=== PATIENT | male | born 1945 | race Caucasian/White ===

== ENCOUNTER 2016-11-21 06:54 | Day surgery (SDC) | payer MEDICARE ==
[2016-11-19 12:27] VITALS: BMI 30.7
[~2016-11-21 06:54] MED LIST: LACTATED RINGERS 1,000 ML IV SCH; MOXIFLOXACIN HCL 0.5% DROPS 3 ML BTL OP ONE; TETRACAINE 0.5% OPHTH (PF) DROPS 4 ML BTL OP ONE; TIMOLOL 0.5% OPHTH SOLN (PF) 0.2 ML DROPERETTE OP ONE
[2016-11-21] MEDS: CYCLOPENTOLATE 1% OPHTH SOLN 2 ML BTL OP ONE ×3 (07:09→07:27)
[2016-11-21 07:13] VITALS: TEMP 97.7
[2016-11-21] MEDS: PHENYLEPHRINE 2.5% OPHTH DRP 2ML OP NR ×3 (07:13→07:30)
[2016-11-21] MEDS ORDERED: LIDOCAINE 1% 20 ML VIAL (10MG/ML) FOR IV START INTRADERMA ONE (07:24)
[2016-11-21] MEDS ORDERED: fentaNYL (PF) 50 MCG/ML 2 ML AMP ONE (08:12)
[2016-11-21] MEDS ORDERED: MIDAZOLAM 2 MG/2 ML VIAL ONE (08:12)
[2016-11-21] MEDS ORDERED: BALANCED SALT IRRIG SOLN COMB2 15 ML IRRIG.SOLN INTRAOCULA ONE (08:18)
[2016-11-21] MEDS ORDERED: HYALURONATE SODIUM INTRAOCULAR 1 EACH SYRINGE (12MG/ML) INTRAOCULA ONE (08:18)
[2016-11-21] MEDS ORDERED: LIDOCAINE 1% (PF) 10MG/ML VIAL SQ ONE (08:18)
[2016-11-21] MEDS ORDERED: EPINEPHrine (PF) 0.3 ML in BALANCED SALT IRRIG SOLN COMB2 500 ML IRRIGATION ONE (08:21)
--- NOTE | 2016-11-21 08:44 | P.OP ---
Date of Procedure: 11/21/16 Preoperative Diagnosis: NS & CS OS Postoperative Diagnosis: same Procedure(s) Performed: PIOL, OS Implants: PCB0 23.00 Anesthesia: MAC Surgeon: Luis Clayton Estimated Blood Loss (ml): 0 Pathology: none sent Condition: stable Disposition: same day Indications for Procedure: blurry vision Operative Findings: No complications
[2016-11-21 08:47] VITALS: RESP 16
[2016-11-21 09:16] VITALS: BP 159/87; PULSE 79
--- NOTE | 2016-11-21 18:55 | OP ---
DATE OF SERVICE: 11/21/2016 SURGEON: ANNALISE MILES MD KILN FIRER: PREOPERATIVE DIAGNOSES: 1. Nuclear sclerosis. 2. Cortical sclerosis. 3. Posterior subcapsular cataract. POSTOPERATIVE DIAGNOSES: 1. Nuclear sclerosis. 2. Cortical sclerosis. 3. Posterior subcapsular cataract. OPERATION: Phacoemulsification of cataract and intraocular lens implant of the left eye. ESTIMATED BLOOD LOSS: Zero. SPECIMEN TAKEN: None. NARRATIVE: After obtaining the appropriate consent, the patient was brought to the Operating Room where the patient was placed under cardiac monitoring and prepped and draped in the usual sterile manner. At the 5 o'clock position a 15 degree super sharp blade was used to create a paracentesis followed by instillation of 1% Xylocaine MPF 50:50 mix with BSS into the anterior chamber. This was followed by Amvisc to stabilize the anterior chamber. At the 3 o'clock position a self-sealing corneal flap incision was created using 2.8 mm magnolia keratome. A cystotome was used to initiate a continuous tear capsulorrhexis which was completed with the Utrata forceps. A Binkhorst cannula was used to hydrodissect the lens nucleus followed by hydrodelineation. Phacoemulsification of the lens was performed utilizing phacochop in 009.5 seconds at 9% power. The remaining cortical material was removed using the irrigation aspiration mode followed by additional 1% Xylocaine MPF into the anterior chamber followed by viscoelastic to stabilize the capsular bag. An JAYNA PCB 00 23.0 diopter posterior chamber lens was placed into the capsular bag without difficulty. The remaining viscoelastic material was removed from the anterior chamber with the irrigation/aspiration. Balanced salt solution was used to normalize the intraocular pressure. The incision was checked for watertight integrity. The patient then received 2 drops of 0.5% timolol followed by 2 drops Vigamox, was lightly patched and shielded in the usual manner. There were no complications from the procedure. The patient tolerated the procedure well and was returned to recovery in good condition.
== END 2016-11-21 09:30 | disposition home or self-care (01) ==
LOC: OR 06:54
PROVIDERS: ATTEND Ophthalmology
DX: H25.12 Age-related nuclear cataract, left eye (principal); H25.042 Posterior subcapsular polar age-related cataract, left eye; H40.31 Glaucoma secondary to eye trauma, right eye; H35.371 Puckering of macula, right eye; H52.13 Myopia, bilateral; H21.561 Pupillary abnormality, right eye; Z96.1 Presence of intraocular lens; Z79.82 Long term (current) use of aspirin; F17.200 Nicotine dependence, unspecified, uncomplicated; Z79.899 Other long term (current) drug therapy
CPT/HCPCS: 66984; C1780; J2250; J0171; J3010; J2001

== ENCOUNTER → 2016-12-27 | Outpatient (CLI) | payer MEDICARE ==
--- NOTE | 2016-12-27 09:18 | ECHOF ---
Referral Reason:R01.0 benign and innocent cardiac murmurs MEASUREMENTS -------- HEIGHT: 182.9 cm WEIGHT: 99.8 kg BP: 120/80 IVSd: 1.4 cm (0.6 - 1.1) LVIDd: 5.1 cm (3.9 - 5.3) LVPWd: 1.3 cm (0.6 - 1.1) IVSs: 2.1 cm LVIDs: 4.0 cm LVPWs: 1.1 cm Ao Diam: 3.2 cm (2.0 - 3.7) AV Cusp: 1.8 cm (1.5 - 2.6) LA Diam: 3.1 cm (2.7 - 3.8) MV EXCURSION: 24.208 mm (> 18.000) MV EF SLOPE: 78 mm/s (70 - 150) EPSS: 1.0 cm MV E Brandon: 0.93 m/s MV DecT: 227 ms MV A Brandon: 0.95 m/s MV E/A Ratio: 0.98 RAP: 5.00 mmHg RVSP: 7.91 mmHg FINDINGS -------- Sinus rhythm. This was a technically difficult study with suboptimal views. There is mild concentric left ventricular hypertrophy. Overall left ventricular systolic function is mildly impaired with, an EF between 45 - 50 %. Mid to basal inferiorlateral is hypokinetic The right ventricle is normal in size and function. The left atrium is normal in size. The right atrium is normal in size. 1.5mg of Definity was utilized for enhancement of images The aortic valve was not well visualized. The mitral valve leaflets are mildly thickened. Mild mitral regurgitation is present. Mild tricuspid regurgitation present. The right ventricular systolic pressure, as measured by Doppler, is 7.91mmHg. The pulmonic valve was not well visualized. The aortic root size is normal. The pericardium is normal. CONCLUSIONS -------- 1. Sinus rhythm. 2. The aortic valve was not well visualized. 3. The mitral valve leaflets are mildly thickened. 4. Mild mitral regurgitation is present. 5. Mild tricuspid regurgitation present. 6. The right ventricular systolic pressure, as measured by Doppler, is 7.91mmHg. 7. The pulmonic valve was not well visualized. 8. The aortic root size is normal. 9. The pericardium is normal. 10. This was a technically difficult study with suboptimal views. 11. There is mild concentric left ventricular hypertrophy. 12. Overall left ventricular systolic function is mildly impaired with, an EF between 45 - 50 %. 13. Mid to basal inferiorlateral is hypokinetic 14. The right ventricle is normal in size and function. 15. The left atrium is normal in size. 16. The right atrium is normal in size. 17. 1.5mg of Definity was utilized for enhancement of images PRODUCT LINE MANAGER: Margarita Garcia RDCS
--- NOTE | 2016-12-27 09:49 | US ---
EXAMINATION TYPE: US carotid duplex BILAT DATE OF EXAM: 12/27/2016 COMPARISON: NONE CLINICAL HISTORY: R09.89 systolic murmur. EXAM MEASUREMENTS: RIGHT: Peak Systolic Velocity (PSV) cm/sec ----- Right CCA: 54.5 ----- Right ICA: 67.8 ----- Right ECA: 77.4 ICA/CCA ratio: 1.2 RIGHT: End Diastole cm/sec ----- Right CCA: 9.5 ----- Right ICA: 25.1 ----- Right ECA: 9.5 LEFT: Peak Systolic Velocity (PSV) cm/sec ----- Left CCA: 72.0 ----- Left ICA: 71.0 ----- Left ECA: 73.4 ICA/CCA ratio: 1.0 LEFT: End Diastole cm/sec ----- Left CCA: 10.4 ----- Left ICA: 21.5 ----- Left ECA: 16.0 VERTEBRALS (direction of flow): Right Vertebral: Antegrade Left Vertebral: Antegrade No significant velocity elevations, mild plaque. Arrhythmia IMPRESSION: I DO NOT SEE EVIDENCE OF A HEMODYNAMICALLY SIGNIFICANT STENOSIS IN EITHER CAROTID SYSTEM. Criteria for Assigning % of Stenosis / Diameter reduction (Estimation based on the indirect measurements of the internal carotid artery velocities (ICA PSV). 1. Normal (no stenosis)=ICA PSV < 125 cm/s: ratio < 2.0: ICA EDV<40 cm/s. 2. Less than 50% stenosis=ICA PSV < 125 cm/s: ratio < 2.0: ICA EDV<40 cm/s. 3. 50 to 69% stenosis=ICA PSV of 125 to 230 cm/s: ration 2.0 ? 4.0: ICA EDV 40-100 cm/s. 4. Greater than 70% stenosis to near occlusion= ICA PSV > 230 cm/s: ratio > 4.0: ICA EDV > 100 cm/s. 5. Near occlusion= ICA PSV velocities may be low or undetectable: variable ratio and ICA EDV. 6. Total occlusion=unable to detect flow.
--- NOTE | 2016-12-27 09:50 | US ---
EXAMINATION TYPE: US duplex aorta DATE OF EXAM: 12/27/2016 COMPARISON: NONE CLINICAL HISTORY: Z78.9 other specified health status. EXAM MEASUREMENTS: Abdominal Aorta: Patient has large abdomen and extensive bowel gas, technically difficult and limited study. Proximal: 2.2 cm Mid: not visualized Distal: 2.0cm Bifurcation: Right, not positively identified Left 1.1cm IMPRESSION: NO EVIDENCE OF AN AORTIC ANEURYSM AT THIS TIME.
== END | disposition home or self-care (01) ==
LOC: RADECHMAIN 08:00
PROVIDERS: ATTEND Family Medicine
DX: R01.0 Benign and innocent cardiac murmurs (principal); R09.89 Other specified symptoms and signs involving the circulatory and respiratory systems; Z78.9 Other specified health status
CPT/HCPCS: 93880; 93979; C8929; Q9957; 93306

== ENCOUNTER 2017-10-14 09:49 | Day surgery (SDC) | payer MEDICARE ==
[~2017-10-14 09:49] MED LIST changes: +ALPRAZolam 0.25 MG TAB PO PRN; +ALPRAZolam 0.5 MG TAB PO PRN; +ASPIRIN 325 MG TAB PO STA; -LACTATED RINGERS 1,000 ML IV SCH; -MOXIFLOXACIN HCL 0.5% DROPS 3 ML BTL OP ONE; +SODIUM CHLORIDE 0.9% 1,000 ML in EMPTY BAG 1 BAG IV ONE; -TETRACAINE 0.5% OPHTH (PF) DROPS 4 ML BTL OP ONE; -TIMOLOL 0.5% OPHTH SOLN (PF) 0.2 ML DROPERETTE OP ONE
[2017-10-14 10:36] LABS: Glucose,Whole Blood 132 mg/dL (75-99)
[2017-10-14 10:42] LABS: Basophils # (A) 0.1 k/uL (0-0.2); Basophils % (A) 1 %; Eosinophils # (A) 0.3 k/uL (0-0.7); Eosinophils % (A) 3 %; HCT 41.2 % (39.0-53.0); HGB 13.3 gm/dL (13.0-17.5); Lymphocytes # (A) 1.5 k/uL (1.0-4.8); Lymphocytes % (A) 13 %; MCH 29.3 pg (25.0-35.0); MCHC 32.2 g/dL (31.0-37.0); MCV 91.1 fL (80.0-100.0); Mean Platelet Volume 6.9; Monocytes # (A) 0.7 k/uL (0-1.0); Monocytes % (A) 6 %; Neutrophils # (A) 8.4 k/uL (1.3-7.7); Neutrophils % (A) 76 %; Platelet Count 425 k/uL (150-450); RBC 4.53 m/uL (4.30-5.90); RDW 12.4 % (11.5-15.5); WBC 11.1 k/uL (3.8-10.6)
[2017-10-14 10:53] LABS: Anion Gap 13 mmol/L; Blood Urea Nitrogen 22 mg/dL (9-20); Carbon Dioxide 26 mmol/L (22-30); Chloride 97 mmol/L (98-107); Glucose 132 mg/dL (74-99); Potassium 4.8 mmol/L (3.5-5.1); Sodium 136 mmol/L (137-145)
[2017-10-14] MEDS ORDERED: MIDAZOLAM 2 MG/2 ML VIAL IV ONE ×2 (10:59→11:23)
[2017-10-14] MEDS ORDERED: LIDOCAINE 2% INJ 20 MG/ML SQ ONE (11:00)
[2017-10-14] MEDS ORDERED: HEPARIN SODIUM 1,000 UN/ML (10ML VL) IV ONE ×2 (11:05→11:35)
[2017-10-14] MEDS ORDERED: CLOPIDOGREL 75 MG TAB PO ONE (11:35)
[2017-10-14] MEDS ORDERED: ALPRAZolam 0.25 MG TAB PO PRN (11:54)
[2017-10-14] MEDS ORDERED: IODIXANOL 320 MG/ML 100 ML INTRAARTER ONE (11:59)
[2017-10-14] MEDS ORDERED: SODIUM CHLORIDE 0.9% 1,000 ML IV SCH (12:00)
--- NOTE | 2017-10-14 12:28 | LTR ---
October 14, 2017 Re: Cirilo Cortez Dear Matthieu: Mr. Cirilo Cortez underwent successful atherectomy and balloon angioplasty of the right femoral artery with good angiographic results and without any complication. I want to thank you for allowing me to participate in his care and please do not hesitate to call if you have any question or concern. Sincerely, MD MEHNAZ Cary / ANALIA: [id number] /
[2017-10-14 16:47] LABS: Glucose,Whole Blood 108 mg/dL (75-99)
--- NOTE | 2017-10-14 18:25 | AN ---
ANGIOGRAPHY REPORT DATE OF SERVICE: 10/14/17 PERFORMING PHYSICIAN: Josias Shay MD, facility maintenance mechanic. PROCEDURE PERFORMED: 1. Selective right [id number]-rox-[id number] angiogram. 2. Selective right SFA angiogram. 3. An atherectomy of the right SFA using the TurboHawk device. 4. Successful balloon angioplasty of the right SFA using drug coated balloon with good angiographic results. 5. Successful stenting of the mid left SFA using Zilver PTX drug coated stent with good angiographic results. INDICATION: This is a pleasant 71-year-old gentleman who was diagnosed with critical limb ischemia of the right foot. He underwent a peripheral angiogram and that showed critical bilateral SFA. He was brought today to undergo an intervention. APPROACH: Left common femoral artery. COMPLICATION: None. LEVEL OF SEDATION: Moderate with sedation length of 50 minutes. PROCEDURE DESCRIPTION: After obtaining an informed consent, the patient was brought to cardiac crime lab analyst. The left common femoral artery was cannulated using micropuncture technique, the micropuncture wire passed easily, then I placed an 11 cm 6-Swiss sheath in the left common femoral artery. After that I did select the right SFA using an 035 Advantage wire with a 5-Swiss rim catheter. After that, I did exchange my 11 cm 6-Swiss sheath into 70 cm 6-Swiss sheath using a 035 advantage wire and the tip of the sheath was positioned in the right common femoral artery. Subsequently I did cross the critical right SFA using a 1 4 hydro XT wire. After that I did atherectomy of the right SFA using the TurboHawk device. After that, I did balloon angioplasty initially using 5 mm AngioSculpt balloon and then 5 mm drug coated balloon. The following angiogram showed residual dissection seems to be severe dissection involving the mid right SFA which confirmed by IVUS. For that reason I decided to stent that segment, which was about 40 mm segment using the 6 x 40 mm Zilver PTX drug coated stent where the stent was positioned under fluoroscopy guidance and deployed after that. Then I postdilated the stent using 5 mm balloon. The following angiogram showed good angiographic results without perforation and without dissection. The procedure was completed without any complication. POST PROCEDURE MANAGEMENT: 1. Dual anti-platelet therapy. 2. Risk factor modifications. 3. A LAY UP OPERATOR of the left SFA. MMODL / IJN: [id number] /
[2017-10-14] MEDS ORDERED: ATORVASTATIN 80 MG TAB PO SCH (21:00)
[2017-10-14] MEDS: DORZOLAMIDE HCL 2% DROPS 10 ML BTL LEFT EYE SCH (21:02)
[2017-10-14] MEDS: METOPROLOL TARTRATE 12.5 MG TAB PO SCH (21:02)
[2017-10-14] MEDS: DORZOLAMIDE HCL 2% DROPS 10 ML BTL RIGHT EYE SCH (21:02)
[2017-10-14 21:04] LABS: Glucose,Whole Blood 186 mg/dL (75-99)
[2017-10-15 06:27] LABS: Basophils # (A) 0.1 k/uL (0-0.2); Basophils % (A) 1 %; Eosinophils # (A) 0.3 k/uL (0-0.7); Eosinophils % (A) 3 %; HCT 36.4 % (39.0-53.0); HGB 12.3 gm/dL (13.0-17.5); Lymphocytes # (A) 1.4 k/uL (1.0-4.8); Lymphocytes % (A) 14 %; MCH 30.3 pg (25.0-35.0); MCHC 33.9 g/dL (31.0-37.0); MCV 89.5 fL (80.0-100.0); Monocytes # (A) 0.7 k/uL (0-1.0); Monocytes % (A) 7 %; Neutrophils # (A) 7.5 k/uL (1.3-7.7); Neutrophils % (A) 73 %; Platelet Count 393 k/uL (150-450); RBC 4.07 m/uL (4.30-5.90); RDW 12.1 % (11.5-15.5); WBC 10.2 k/uL (3.8-10.6)
[2017-10-15 06:36] LABS: Anion Gap 7 mmol/L; Blood Urea Nitrogen 21 mg/dL (9-20); Calcium 9.8 mg/dL (8.4-10.2); Carbon Dioxide 29 mmol/L (22-30); Chloride 100 mmol/L (98-107); Glucose 119 mg/dL (74-99); Potassium 5.4 mmol/L (3.5-5.1); Sodium 136 mmol/L (137-145)
[2017-10-15 07:01] LABS: Glucose,Whole Blood 114 mg/dL (75-99)
[2017-10-15] MEDS ORDERED: CLOPIDOGREL 75 MG TAB PO SCH (09:00)
[2017-10-15] MEDS ORDERED: LINAGLIPTIN 5 MG TABLET PO SCH (09:00)
[2017-10-15] MEDS ORDERED: ASPIRIN 81 MG PO SCH (09:00)
[2017-10-15] MEDS ORDERED: FISH OIL PO SCH (09:00)
[2017-10-15] MEDS ORDERED: TERBINAFINE 250 MG TAB PO SCH (09:00)
[2017-10-15] MEDS ORDERED: LISINOPRIL 10 MG TAB PO SCH (09:00)
[2017-10-15] MEDS ORDERED: SPIRONOLACTONE 25 MG TAB PO SCH (09:00)
[2017-10-15 09:06] VITALS: BP 122/66; PULSE 67; RESP 18; TEMP 97.1
[2017-10-15] MEDS: METOPROLOL TARTRATE 12.5 MG TAB PO SCH (09:25)
[2017-10-15] MEDS: DORZOLAMIDE HCL 2% DROPS 10 ML BTL LEFT EYE SCH (09:28)
[2017-10-15] MEDS: DORZOLAMIDE HCL 2% DROPS 10 ML BTL RIGHT EYE SCH (09:28)
--- NOTE | 2017-10-15 09:57 | IR ---
Fluoroscopy HISTORY: Peripheral vascular occlusive disease, right leg pain 8.9 minutes fluoroscopy time supplied to the referring clinician. 333 intraoperative C-arm images do cument the procedure. See dictated report from cardiology.
[2017-10-15] MEDS ORDERED: CHOLECALCIFEROL 1,000 UNIT TAB PO SCH (12:00)
[2017-10-16] MEDS ORDERED: CLOPIDOGREL 75 MG TAB PO SCH (09:00)
== END 2017-10-15 09:44 | disposition home or self-care (01) ==
LOC: CATHCVL 09:49 → 6SEL 15:56 → CATHCVL 10-15 09:44 → 6SEL 10-15 10:05
PROVIDERS: ATTEND Internal Medicine Interventional Cardiology
DX: I70.235 Atherosclerosis of native arteries of right leg with ulceration of other part of foot (principal); L97.519 Non-pressure chronic ulcer of other part of right foot with unspecified severity; E11.621 Type 2 diabetes mellitus with foot ulcer; E11.51 Type 2 diabetes mellitus with diabetic peripheral angiopathy without gangrene; I10 Essential (primary) hypertension; I25.10 Atherosclerotic heart disease of native coronary artery without angina pectoris; F10.10 Alcohol abuse, uncomplicated; I25.5 Ischemic cardiomyopathy; Z79.2 Long term (current) use of antibiotics; Z79.84 Long term (current) use of oral hypoglycemic drugs; Z79.82 Long term (current) use of aspirin; Z79.899 Other long term (current) drug therapy; Z87.891 Personal history of nicotine dependence
CPT/HCPCS: 37227; 80048 ×2; 85025 ×2; C1894 ×2; C1725 ×2; C1769 ×4; C1714; C1753; C2623; C1874; J2001; J2250; Q9967; J1644

== ENCOUNTER → 2021-08-25 | Outpatient (CLI) | payer MEDICARE ==
--- NOTE | 2021-08-25 15:52 | XR ---
EXAMINATION TYPE: XR chest 2V DATE OF EXAM: 08/25/2021 COMPARISON: None INDICATION: Difficulty breathing TECHNIQUE: Frontal and lateral views of the chest are obtained. FINDINGS: The heart size is normal. The pulmonary vasculature is normal. Small right pleural effusion is present. On the lateral projection small posterior left pleural effus ion is also noted. Flowing calcifications over the anterior longitudinal ligament.. IMPRESSION: 1. Small bilateral pleural effusions. 2. COPD.
--- NOTE | 2021-08-25 17:14 | NM ---
EXAMINATION TYPE: NM pul vent and perfuse DATE OF EXAM: 08/25/2021 COMPARISON: NONE HISTORY: Elevated d-dimer. TECHNIQUE: Utilizing inhalation of 34.1 mCi Tc 99m DTPA aerosol and intravenous injection of 5.05 mC i of Tc 99m MAA, ventilation and perfusion images are acquired post injection in multiple projections . FINDINGS: There is nonsegmental diminished activity identified scattered throughout both lungs. No wedge-shaped perfusion abnormalities identified. IMPRESSION: Low probability of PE with nonsegmental perfusion defects.
== END | disposition home or self-care (01) ==
LOC: RADNMMAIN 15:19
PROVIDERS: ATTEND Family Medicine
DX: J44.9 Chronic obstructive pulmonary disease, unspecified (principal); J90 Pleural effusion, not elsewhere classified; R79.1 Abnormal coagulation profile
CPT/HCPCS: 71046; 78582; A9540; A9567